=== PATIENT | female | born 1980 | race African-American/Black ===

== ENCOUNTER 2016-09-29 21:17 | Emergency (ER) | payer OTHER ==
[~2016-09-29] VITALS: Ht 160 cm; Wt 88.5 kg
[~2016-09-29 21:17] MED LIST: KETOCONAZOLE60 GM TP; NOHOMEMEDICATIONS; VISTARIL 25 MG25 M1 PO
[2016-09-29 22:29] LABS: ABSOLUTE NEUTROPHILS 6.9 thou/uL (1.4-8.2); BASOPHILS 0.4 % (0.0-2.0); EOSINOPHILS 0.1 % (0.0-3.0); HEMATOCRIT 37.8 % (37.0-47.0); HEMOGLOBIN 12.7 gm/dL (12.0-15.0); LYMPHOCYTES 23.9 % (24.0-44.0); MCH 30.2 pg (26.0-34.0); MCHC 33.6 g/dL (28.0-37.0); MCV 89.9 fL (80.0-100.0); MONOCYTES 3.8 % (1.0-8.0); PLATELET COUNT 323 thou/uL (150-400); POLYS 71.8 % (36.0-66.0); RDW 16.4 % (10.5-14.5); WBC 9.6 thou/uL (4.0-11.0)
[2016-09-29 22:33] LABS: CREATININE 0.7 mg/dL (0.6-1.0); MANUAL DIFF NO; POTASSIUM 3.9 mmol/L (3.5-5.1)
[2016-09-29] MEDS ORDERED: ONDANSETRON HCL4 M2 PO (23:17)
[2016-09-29 23:37] VITALS: BP 126/72
== END 2016-09-29 23:38 | disposition home or self-care (01) ==
LOC: ER 21:17
PROVIDERS: Nurse Practitioner
DX: R51 Headache (principal)